=== PATIENT | female | born 1975 | race Caucasian/White ===

== ENCOUNTER → 2020-08-13 | Outpatient (REF) | payer OTHER | LOC: M LAB REF 18:43 | PROVIDERS: ATTEND Physician Assistant | DX: D22.5 Melanocytic nevi of trunk (principal) ==

== ENCOUNTER → 2024-04-04 | Outpatient (REF) | payer OTHER | LOC: M SFHCDERM 17:28 | PROVIDERS: ATTEND Physician Assistant | DX: C44.711 Basal cell carcinoma of skin of unspecified lower limb, including hip (principal) ==

== ENCOUNTER → 2025-05-02 | Outpatient (CLI) | payer OTHER ==
[~2025-05-02] MED LIST: TAMO20TA8 PO
== END ==
LOC: M ONCR 14:28
PROVIDERS: ATTEND General Practice
DX: C50.411 Malignant neoplasm of upper-outer quadrant of right female breast (principal); Z79.810 Long term (current) use of selective estrogen receptor modulators (SERMs); Z17.0 Estrogen receptor positive status [ER+]; Z17.21 Progesterone receptor positive status; Z17.32 Human epidermal growth factor receptor 2 negative status; Z98.890 Other specified postprocedural states

== ENCOUNTER 2025-05-31 14:10 | Outpatient (RCR) | payer OTHER | END 2025-06-09 | LOC: M ONCR 14:10 | PROVIDERS: ATTEND General Practice | DX: Z51.0 Encounter for antineoplastic radiation therapy (principal); C50.411 Malignant neoplasm of upper-outer quadrant of right female breast ==